=== PATIENT | female | born 1995 | race Hispanic/Latino ===

== ENCOUNTER 2021-04-30 23:24 | Emergency (ER) | payer OTHER ==
[~2021-04-30] VITALS: Ht 162.6 cm; Wt 67.6 kg
[2021-04-30 23:48] LABS: APPEARANCE,URINE Clear (CLEAR); BASOPHILS % (AUTO) 0.2 % (0.0-5.0); BILIRUBIN,URINE Negative (NEGATIVE); COLOR,URINE Yellow (YELLOW); EOSINOPHILS % (AUTO) 0.4 % (0.0-8.0); GLUCOSE, URINE (UA) Negative (NEGATIVE); HEMATOCRIT 42.2 % (36-48); KETONES,URINE Trace mg/dL (NEGATIVE); LEUKOCYTE ESTERASE ,URINE Small (NEGATIVE); LYMPHOCYTES % (AUTO) 3.2 % (21.0-51.0); MEAN CORPUSCULAR HEMOGLOBIN 27.9 pg (27.0-33.0); MEAN CORPUSCULAR HGB CONC 31.8 g/dL (32.0-36.0); MEAN CORPUSCULAR VOLUME 87.9 fL (79-99); MONOCYTES % (AUTO) 3.6 % (3.0-13.0); NITRATE,URINE Negative (NEGATIVE); OCCULT BLOOD,URINE Small (NEGATIVE); PLATELET COUNT (AUTO) 205 K/uL (130-400); PROTEIN,URINE POS 1+ mg/dL (NEGATIVE); RED CELL DISTRIBUTION WIDTH 13.7 % (11.0-15.5); UROBILINOGEN,URINE 0.2 mg/dL (0.2-1.0)
[2021-04-30 23:56] LABS: HCG,QUAL RESULT NEGATIVE (NEGATIVE)
[2021-04-30 23:58] LABS: CREATININE 0.7 mg/dL (0.5-1.5); POTASSIUM 3.8 mmol/L (3.5-5.1)
[2021-05-01] MEDS ORDERED: ONDANSETRON 4MG INJ IVP ONE
[2021-05-01 00:02] LABS: ALBUMIN 4.2 g/dL (3.5-5.0); BILIRUBIN,TOTAL 0.5 mg/dL (0.2-1.0); TOTAL PROTEIN, SERUM 8.4 g/dL (6.0-8.3)
[2021-05-01 00:07] LABS: RBC,URINE 0-1 /HPF (0-1)
[2021-05-01 00:08] LABS: BACTERIA,URINE Moderate /HPF (None Seen); SQUAMOUS EPITHELIAL CELL,UR Moderate /HPF (0-2)
[2021-05-01 00:10] LABS: MUCUS,URINE Few LPF (None Seen)
[2021-05-01] MEDS ORDERED: ONDA4TAB10 PO (00:27)
[2021-05-01] MEDS ORDERED: DICY20TA2 PO (00:27)
[2021-05-01] MEDS ORDERED: PANT40TA PO (00:27)
[2021-05-01] MEDS ORDERED: METO-296 PO (00:27)
[2021-05-01] MEDS ORDERED: FAMOTIDINE 20MG VIAL IV ONE (00:30)
[2021-05-01] MEDS ORDERED: 0.9%NACL 1000ML 1,000 ML IV ONE (00:30)
[2021-05-01] MEDS ORDERED: PANTOPRAZOLE 40 MG/VIAL IVP ONE (00:30)
[2021-05-01] MEDS ORDERED: METOCLOPRAMIDE 10 MG/2 ML VIAL IVP ONE (00:30)
[2021-05-01] MEDS ORDERED: CIPR-278 PO (01:58)
[2021-05-01] MEDS ORDERED: LEVOFLOXACIN 500 MG TABLET PO ONE (02:00)
[2021-05-01] MEDS ORDERED: LEVOFLOXACIN 500 MG TABLET ONE (02:02)
[2021-05-01 02:08] VITALS: BP 104/53
== END 2021-05-01 02:08 | disposition home or self-care (01) ==
LOC: EDH 23:24
DX: E86.9 Volume depletion, unspecified (principal); R19.7 Diarrhea, unspecified; R11.2 Nausea with vomiting, unspecified; Z20.822 Contact with and (suspected) exposure to COVID-19; Z90.49 Acquired absence of other specified parts of digestive tract
CPT/HCPCS: 36415; 80053; 81001; 81025; 83690; 85025; 87077; 87088; 87186; 87635; 87804 ×2; 96374; 96375; 99284; C9113; C9803; J2765; J3490